=== PATIENT | male | born 1975 | race Caucasian/White ===

== ENCOUNTER 2022-03-27 16:37 | Emergency (ER) | payer BC ==
[2022-03-27 17:18] VITALS: BP 117/74; PULSE 83; RESP 18; TEMP 98; BMI 29.3
== END 2022-03-27 18:50 | disposition home or self-care (01) ==
LOC: JERFT 16:37
PROC: 0HQNXZZ Repair Left Foot Skin, External Approach (ICD-10-PCS; principal; 2022-03-27)
DX: S91.312A Laceration without foreign body, left foot, initial encounter (principal); W20.8XXA Other cause of strike by thrown, projected or falling object, initial encounter
CPT/HCPCS: 73610-TC-LT-FY; 99283-25

== ENCOUNTER 2022-04-03 20:57 | Emergency (ER) | payer BC ==
[2022-04-03 21:49] VITALS: BP 115/76; PULSE 80; RESP 18; TEMP 98; BMI 29.0
== END 2022-04-04 01:58 | disposition home or self-care (01) ==
LOC: JERFT 20:57 → JER 20:57 → JERFT 04-04 01:58
DX: L76.34 Postprocedural seroma of skin and subcutaneous tissue following other procedure (principal)
CPT/HCPCS: 99283-25; 99284-25